=== PATIENT | female | born 2000 | race Caucasian/White ===

== ENCOUNTER 2018-03-04 13:26 | Emergency (ER) | payer MEDICAID ==
[~2018-03-04] VITALS: Ht 167.6 cm; Wt 64.0 kg
[2018-03-04 13:33] VITALS: Ht 167.6 cm; Wt 64.0 kg
[2018-03-04 14:28] VITALS: BP 103/61
== END 2018-03-04 14:28 | disposition home or self-care (01) ==
LOC: ED 13:26
DX: B34.9 Viral infection, unspecified (principal); M54.6 Pain in thoracic spine

== ENCOUNTER 2018-03-04 22:37 | Emergency (ER) | payer MEDICAID ==
[~2018-03-04] VITALS: Ht 157.5 cm; Wt 64.4 kg
[2018-03-04 22:44] VITALS: Ht 157.5 cm; Wt 64.4 kg
[2018-03-05 00:45] VITALS: BP 101/61
== END 2018-03-05 00:45 | disposition home or self-care (01) ==
LOC: ED 22:37
DX: B34.9 Viral infection, unspecified (principal); R20.2 Paresthesia of skin

== ENCOUNTER 2019-06-28 23:42 | Emergency (ER) | payer SELFPAY ==
[~2019-06-28] VITALS: Ht 157.5 cm; Wt 63.5 kg
[2019-06-28 23:45] VITALS: Ht 157.5 cm; Wt 63.5 kg
[2019-06-29 00:24] VITALS: BP 130/74
== END 2019-06-29 00:24 | disposition home or self-care (01) ==
LOC: ED 23:42
DX: R11.10 Vomiting, unspecified (principal); F10.120 Alcohol abuse with intoxication, uncomplicated

== ENCOUNTER 2020-05-26 01:17 | Emergency (ER) | payer OTHER ==
[~2020-05-26] VITALS: Ht 154.9 cm; Wt 61.9 kg
[2020-05-26 01:26] VITALS: Ht 154.9 cm; Wt 61.9 kg
[2020-05-26 03:26] VITALS: BP 118/64
== END 2020-05-26 03:26 | disposition home or self-care (01) ==
LOC: ED 01:17
DX: R07.89 Other chest pain (principal)
CPT/HCPCS: Q0092